=== PATIENT | male | born 1985 | race African-American/Black ===

== ENCOUNTER 2021-10-21 05:34 | Emergency (ER) | payer MEDICAID ==
[~2021-10-21] VITALS: Ht 180.3 cm; Wt 72.8 kg
[2021-10-21 05:53] VITALS: BP 101/73
[2021-10-21 07:40] LABS: BASOPHILS % 0.5 % (0.0-2.0); HEMATOCRIT. 45.4 % (42.0-52.0); HEMOGLOBIN. 14.9 g/dL (14.0-18.0); LYMPHOCYTES % 14.8 % (20.0-50.0); MEAN CORPUSCULAR VOLUME 82.1 fL (80.0-94.0); MEAN PLATELET VOLUME 7.3 fl (7.4-10.4); MONOCYTES % 12.7 % (2.0-8.0); PLATELET 330 x1000/uL (130-400); RED BLOOD CELL COUNT 5.53 mill/uL (4.7-6.1); RED CELL DISTRIBUTION WIDTH 15.7 % (11.6-14.6)
[2021-10-21 07:49] LABS: CHLORIDE 107 mEq/L (98-107)
[2021-10-21] MEDS ORDERED: TOPUD PO (09:02)
== END 2021-10-21 09:33 | disposition home or self-care (01) ==
LOC: ER 05:50
DX: R07.89 Other chest pain (principal); F17.210 Nicotine dependence, cigarettes, uncomplicated
CPT/HCPCS: 36415; 71045; 80053; 83880; 84484; 85025; 93005; 99285